=== PATIENT | female | born 1975 | race Caucasian/White ===

== ENCOUNTER 2017-01-26 08:41 | Emergency (ER) | payer SELFPAY ==
[~2017-01-26] VITALS: Ht 175.3 cm; Wt 79.4 kg
[2017-01-26 08:50] VITALS: TEMP 98.3
[2017-01-26 09:51] LABS: BASO % 0.2 % (0.0-2.0); EOS # 0.1 (0.0-0.7); EOS % 0.4 % (0-4.0); GRAN # 11.3 (1.4-6.5); GRAN % 83.8 % (42.2-75.2); HEMATOCRIT 45.4 % (37.0-47.0); HEMOGLOBIN 15.2 g/dl (12.5-16.0); LYMPH # 1.6 (1.2-3.4); MEAN CELL VOLUME 89 fl (80.0-100.0); MEAN CORPUSCULAR HEMOGLOBIN 30 pg (27.0-31.0); MEAN CORPUSCULAR HGB CONC 34 g/dl (33.0-37.0); MONO # 0.4 (0.1-0.6); MONO % 3.2 % (1.7-9.3); PLATELET COUNT 244 K/mm3 (130-400); RED BLOOD COUNT 5.11 M/mm3 (4.10-5.30); REDCELL DISTRIBUTION WIDTH-CV 12.8 % (11.5-14.5); WHITE BLOOD COUNT 13.5 K/mm3 (4.8-10.8)
[2017-01-26 10:03] LABS: ADJUSTED CALCIUM 9.3 mg/dL (8.4-10.2); ALBUMIN 4.1 gm/dL (3.5-5.0); BILIRUBIN,TOTAL 0.9 mg/dL (0.0-1.0); CALCIUM 9.4 mg/dL (8.4-10.2); CREATININE, serum 0.62 mg/dL (0.52-1.25); POTASSIUM 3.9 mmol/L (3.4-5.0); TOTAL PROTEIN 7.9 gm/dL (6.4-8.2)
[2017-01-26 10:07] LABS: PH 8 (5-8); SQUAMOUS EPITHELIAL 0-2 /hpf; URINE APPEARANCE Clear; URINE BACTERIA None Seen /hpf; URINE BILIRUBIN Negative (NEGATIVE); URINE BLOOD 1+ (NEGATIVE); URINE COLOR Yellow; URINE GLUCOSE Negative (NEGATIVE); URINE KETONE Negative (NEGATIVE); URINE RBC 0-2 /hpf; URINE UROBILINOGEN Negative (NEGATIVE); URINE WBC 0-2 /hpf
[2017-01-26] MEDS ORDERED: PHENERGAN 25 TA25 MG PO (13:04)
[2017-01-26] MEDS ORDERED: PRILOSEC 20MG20 MG PO (13:04)
[2017-01-26 13:29] VITALS: BP 103/56; PULSE 67
== END 2017-01-26 13:29 | disposition home or self-care (01) ==
LOC: COL.ER 08:41
PROVIDERS: Emergency Medicine
DX: R10.13 Epigastric pain (principal); R11.0 Nausea
CPT/HCPCS: J1170; J2550; J7030